=== PATIENT | female | born 1975 | race Caucasian/White ===

== ENCOUNTER 2017-03-31 22:39 | Inpatient (IN) | payer OTHER ==
--- NOTE | ~2017-03-31 | CO ---
Unit #: [id number] #: [id number] Patient: MARGARITO MELENDEZ [id number] [facility] [address], [place] [address] [id number] MR#: [id number] NAME: MARGARITO MELENDEZ ROOM: 229 Age: 42 Sex: F Admission Date: 04/01/2017 : 1975 Attending Physician: Rose Vega M.D. Primary Care Physician: Israel Love M.D. Consultation Date: 04/03/2017 CONSULTATION REPORT DISCUSSION Margarito Melendez is a 42-year-old female, seen in room 221, bed 1 on 04/03/2017 at [facility]. The patient was admitted with suicide attempt by taking overdose, pleasant and cooperative, dressed casually in hospital attire. The patient has a sitter, able to answer questions appropriately. The patient denied any current suicidal ideation, but mood sad, dysphoric, flat, guarded, depressed. REVIEW OF SYSTEMS Complete review of systems is unremarkable. MENTAL STATUS EXAMINATION General appearance, the patient dressed casually. Attention span and concentration, fair. The patient's vital signs; temperature 98.0, pulse 80, respirations 18, blood pressure 129/74, oxygen saturation 100%. Attention span and concentration, fair. Speech, regular rate and slow in volume. Oriented in time, place, and person. Mood and affect, sad and depressed. Thought process, coherent. Thought content; the patient denied any thoughts of harming self or others, but passive SI, denied any hallucination. Recent and remote memory, poor. Language, fair. Insight and judgment, fair to slightly impaired. DIAGNOSES Psychiatric: Major depressive disorder, recurrent, severe, F33.2; amphetamine abuse disorder, moderate, F15.20. Secondary diagnosis: Deferred. ASSESSMENT/PLAN 1. Supportive psychotherapy and psychoeducation provided to the patient. 2. Educated about benefits and side effects of medication and course and prognosis of illness. 3. Advised to continue with current treatment, one-to-one monitoring with a plan to stabilize and transfer the patient to [facility] after the patient is medically stable. Please feel free to call if any questions telephone #[phone]. Dictated by... Nick Quinones M.D. [facility]/sander TD: 04/03/2017 23:52 Unit #: [id number] #: [id number] Patient: MARGARITO MELENDEZ JOB #: [id number] CONSULTATION REPORT Page 1 of 1 X Nick Quinones MD X CONSULTATION REPORT
--- NOTE | ~2017-03-31 | CT71 ---
[facility] A Service of [facility] RADIOLOGY TEXT RESULTS PATIENT: MARGARITO MELENDEZ [facility] [birth year] UNIT #: [id number] AGE: [address]: Rose Vega MD SEX: F ORDER DR: [id number] [facility] [address] [facility]. [place], [place] [address] [id number] I MR#: [id number] Acc #: [id number] NAME: MARGARITO MELENDEZ : 1975 SEX: F STUDY DATE/TIME: 04/01/2017 22:22 UNIT: [facility] ROOM: [facility] STUDY DESCRIPTION: CT Head Wo Contrast Attending Physician: Rose Vega M.D. Ordering Physician: Tristan Reyes M.D. Primary Care Physician: Israel Love M.D. MEDICAL IMAGING REPORT This report is preliminary unless electronic signature is present EXAM CT head. INDICATION Overdose. Unresponsive. Lethargy. TECHNIQUE CT head without contrast. This CT exam was performed with one or more of the following radiation dose reduction techniques: automatic exposure control, adjustment of mA and/or kV according to patient size, and iterative reconstruction. COMPARISON CT head dated 03/31/2017. FINDINGS The exam is degraded due to motion artifact. Axial noncontrast images were obtained from the skull base to the vertex. Ventricular size and configuration are normal. There is no evidence of acute infarct or hemorrhage. There are no extra-axial fluid collections. No mass lesion or mass effect is seen. There are no skull fractures. There is diffuse mucosal thickening throughout the paranasal sinuses, greatest in the left maxillary sinus. IMPRESSION Normal noncontrast head CT. Dictated by... Daryl Turner M.D. THIS IS AN ELECTRONICALLY VERIFIED REPORT Daryl Turner M.D. at 04/02/2017 4:03 AM [facility] A Service of [facility] RADIOLOGY TEXT RESULTS PATIENT: MARGARITO MELENDEZ [facility]: [facility] : 71 UNIT #: [id number] AGE: [address]: Rose Vega MD SEX: F ORDER DR: Sharita TD: 04/02/2017 02:33 JOB #: [id number] MEDICAL IMAGING REPORT Page 1 of 1 COPY
--- NOTE | ~2017-03-31 | EKG ---
PATIENT: MARGARITO MELENDEZ UNIT #: [id number] Ventricular Rate: 124 BPM Atrial Rate: 124 BPM P-R Interval: 138 ms QRS Duration: 86 ms Q-T Interval: 312 ms QTC Calculation(Bezet): 448 ms P [place]: 32 degrees Calculated R [place]: 33 degrees Calculated T [place]: 23 degrees Diagnosis Line: Sinus tachycardia Diagnosis Line: Cannot rule out Anterior infarct (cited on or Diagnosis Line: before 01-DEC-2011) Diagnosis Line: Abnormal ECG Diagnosis Line: When compared with ECG of 01-DEC-2011 13:16, Diagnosis Line: Nonspecific T wave abnormality now evident in Diagnosis Line: Lateral leads Diagnosis Line: Confirmed by RUPAL BENSON MD ([id number]) on Diagnosis Line: 04/02/2017 8:46:27 AM INTERPRETING MD: MARCELINO MACE
--- NOTE | ~2017-03-31 | CR72 ---
[facility] A Service of [facility] RADIOLOGY TEXT RESULTS PATIENT: MARGARITO MELENDEZ LOCATION: [facility] [address]83-65 : [birth year] UNIT #: [id number] AGE: [address]: Rose Vega MD SEX: F ORDER DR: [id number] [facility] [address] [facility] [place], [place] [address] [id number] I MR#: [id number] Acc #: [id number] NAME: AMRGARITO MELENDEZ : 1975 SEX: F STUDY DATE/TIME: 03/31/2017 23:07 UNIT: [facility] ROOM: 71490 STUDY DESCRIPTION: CR Chest Single View Portable Attending Physician: Rose Vega M.D. Ordering Physician: Marcella Giron M.D. Primary Care Physician: Israel Love M.D. MEDICAL IMAGING REPORT This report is preliminary unless electronic signature is present EXAM Single view chest INDICATIONS Respiratory failure. FINDINGS Single portable AP view of the chest compared to 12/01/2011. Endotracheal tube is approximately 2 cm above the adrian. Heart and mediastinal contours are unchanged. No focal airspace opacity. IMPRESSION Endotracheal tube approximately 2 cm above the adrian. Dictated by... Daryl Turner M.D. THIS IS AN ELECTRONICALLY VERIFIED REPORT Daryl Turner M.D. at 04/01/2017 3:25 AM HEATHER/vivek TD: 04/01/2017 03:13 JOB #: [id number] MEDICAL IMAGING REPORT Page 1 of 1 COPY
--- NOTE | ~2017-03-31 | DS ---
Unit #: [id number] #: [id number] Patient: MARGARITO MELENDEZ [id number] [address] [place], [place] [address] [id number] I MR#: [id number] NAME: MARGARITO MELENDEZ ROOM: 229 Age: 42 Sex: F Admission Date: 04/01/2017 : 1975 Discharge Date: 04/03/2017 Attending Physician: Rose Vega M.D. Primary Care Physician: Israel Love M.D. DISCHARGE SUMMARY DISCHARGE DIAGNOSES 1. Status post acute hypoxemic respiratory failure. 2. Aspiration pneumonia. 3. Drug overdose with suicidal ideation. 4. Polysubstance abuse. 5. Depression. 6. History of gastroesophageal reflux disease. DISPOSITION Going to [facility] to the care of Psychiatry, Dr. Quinones. CONSULTS DURING THIS HOSPITAL STAY 1. Dr. Ellis, Pulmonary. 2. Dr. Quinones, Psychiatry. LABS, DIAGNOSTICS, AND PROCEDURES DURING THIS HOSPITAL STAY 1. She was intubated initially and then was extubated later the next day. 2. Chest x-ray initially showed no focal airspace opacity. 3. CT of the head was without any acute findings. Motion-degraded study. Questionable area of decreased attenuation in the left occipital lobe likely motion-degraded study and artifact. 4. Repeat CT of the head the next day was a normal noncontrast CT. 5. Chest x-ray without any acute findings. Mild bibasilar airspace opacities most likely atelectasis. 6. Blood culture negative. Urine culture showed E. coli. HISTORY OF PRESENT HOSPITAL STAY Please refer to History and Physical done by me for initial presentation on this female. ACTIVE PROBLEMS DIAGNOSED Acute hypoxemic respiratory failure secondary to drug overdose with suicidal ideation. Patient was initially intubated and admitted to the ICU. She was managed on mechanical ventilation and treated with bronchodilators, steroids, and antibiotics. She was successful extubated. Currently, no signs of any respiratory distress. Questionable aspiration pneumonia. She was treated with IV antibiotics. At the discharge date, patient was put on Augmentin. However, secondary to a E. coli UTI which is resistant to ampicillin, will change patient to Levaquin and will discharge on Levaquin for seven days. Suicidal ideation with history of depression, status post evaluation per Dr. Quinones from Psychiatry. Getting discharged to [facility]. Unit #: [id number] #: [id number] Patient: MARGARITO MELENDEZ Gastroesophageal reflux disease. Continue PPI. Polysubstance abuse. Patient was counseled on the importance of quitting drug habits. Dictated by... Lucien Akins/satish TD: 04/03/2017 20:32 JOB #: [id number] DISCHARGE SUMMARY Page 1 of 1 X Tristan Reyes MD X DISCHARGE SUMMARY
--- NOTE | ~2017-03-31 | CT71 ---
[facility] A Service of [facility] RADIOLOGY TEXT RESULTS PATIENT: MARGARITO MELENDEZ [facility] : 71 UNIT #: [id number] AGE: [address]: Rose Vega MD SEX: F ORDER DR: [id number] [place] [id number] [facility]. [place], [place] [address] [id number] I MR#: [id number] Acc #: [id number] NAME: MARGARITO MELENDEZ : 1975 SEX: F STUDY DATE/TIME: 03/31/2017 23:36 UNIT: [facility]3 ROOM: [facility] STUDY DESCRIPTION: CT Head Wo Contrast Attending Physician: Rose Vega M.D. Ordering Physician: Marcella Giron M.D. Primary Care Physician: Israel Love M.D. MEDICAL IMAGING REPORT This report is preliminary unless electronic signature is present EXAM CT head INDICATION Overdose. Unresponsive. Found down. TECHNIQUE CT head without contrast. This CT exam was performed with one or more of the following radiation dose reduction techniques: automatic exposure control, adjustment of mA and/or kV according to patient size, and iterative reconstruction. COMPARISON None available. FINDINGS The exam is degraded by motion. Bar-white matter differentiation is within normal limits. There is a questionable area of decreased attenuation in the left occipital lobe which could indicate a small acute infarct, however, there is motion in this area and it may be artifact. The ventricles are small in caliber which may be a normal variant, however a followup study should be performed. There is no acute osseous abnormalities. Mild mucosal thickening is noted in the paranasal sinuses. IMPRESSION 1. Unfortunately the exam is degraded by motion. 2. There is a questionable area of decreased attenuation in the left occipital lobe which could represent an acute infarct, however given the motion in this region, it could easily be artifact. Followup CT would be recommended. 3. Small size of the ventricles may be a normal variant in this patient, [facility] A Service [facility] RADIOLOGY TEXT RESULTS PATIENT: MARGARITO MELENDEZ [facility] 71 UNIT #: [id number] AGE: [address]: Rose Vega MD SEX: F ORDER DR: however, I would recommend followup study to further evaluate. Consider an 8-hour followup window. Dictated by... Daryl Turner M.D. THIS IS AN ELECTRONICALLY VERIFIED REPORT Daryl Turner M.D. at 04/01/2017 9:06 PM HEATHER/antony TD: 04/01/2017 03:44 JOB #: [id number] MEDICAL IMAGING REPORT Page 1 of 1 COPY
--- NOTE | ~2017-03-31 | CO ---
Unit #: [id number] #: [id number] Patient: MARGARITO MELENDEZ [id number] [address] [address] [id number] MR#: [id number] NAME: MARGARITO MELENDEZ ROOM: 229 Age: 42 Sex: F Admission Date: 04/01/2017 : 1975 Attending Physician: Rose Vega M.D. Primary Care Physician: Israel Love M.D. Consultation Date: 04/02/2017 CONSULTATION REPORT REASON FOR CONSULTATION Polysubstance overdose, polydrug overdose. HISTORY OF PRESENT ILLNESS Ms. Margarito Melendez is a 42-year-old white female, seen in CCU-3, bed 17 on 04/02/2017. The patient dressed in hospital attire, lying comfortably in bed. The patient was somewhat sleepy, but able to answer question. The patient admitted taking overdose on her medication. The patient reported was feeling sad, depressed, suicidal, still unable to contract for safety. The patient currently has a sitter. The patient was admitted with acute hypoxemic respiratory failure after drug overdose. The patient was able to give limited history. The patient's toxicology screen was positive for amphetamine and marijuana also. The patient was calm and cooperative, but somewhat sleepy. The patient's vital signs; temperature 99.5, pulse 83, blood pressure 146/85, oxygen saturation 97%. PAST PSYCHIATRIC HISTORY Remarkable for history of depression. Details about treatment is unknown at this time. MEDICATION HISTORY Unavailable. FAMILY HISTORY AND SOCIAL HISTORY The patient's family history is unknown, but reported that she has a good support. The patient denied any history of abuse, but history of substance abuse as per urine drug screen. The patient denied any. REVIEW OF SYSTEMS A complete review of systems is unremarkable except the patient is somewhat sleepy, sad, and depressed. MENTAL STATUS EXAMINATION Vital signs; please see above. General appearance; the patient dressed casually in hospital attire. Attention span and concentration, poor. Speech, slow. Orientation in self. Mood and affect, flat. Thought process, concrete. Thought content; the patient reported suicide attempt, suicidal ideation, guarded, and paranoid, but denied any hallucination. Recent and remote memory, poor. Language, fair. Fund of knowledge, impaired. Insight and judgment, impaired. DIAGNOSES Psychiatric: Major depressive disorder, recurrent, severe, F33.2; amphetamine use disorder, moderate, F15.20; cannabis abuse, moderate, Unit #: [id number] #: [id number] Patient: MARGARITO MELENDEZ F12.20. Secondary diagnosis: Deferred. Medical diagnosis: Please refer to H and P. Stressors: Psychosocial stressor. ASSESSMENT AND PLAN 1. Supportive psychotherapy and psychoeducation provided to the patient. 2. Educated about benefits and side effects of medication and course and prognosis of illness. 3. Recommending at this time no medication, but continue with 72-hour hold, one-on-one monitoring with sitter, and advised the patient to be transferred to [facility] once the patient is medically stable. Please feel free to call if any questions, telephone #[phone]. Dictated by... Nick Quinones M.D. CHRISTIE/sander TD: 04/02/2017 22:24 JOB #: [id number] CONSULTATION REPORT Page 1 of 1 X Nick Quinones MD X CONSULTATION REPORT
--- NOTE | ~2017-03-31 | A ---
[facility] Nutrition Therapy DATE: 04/01/17 Patient: MARGARITO MELENDEZ Physician: JOSHUA Address: [address] [place] [address] Room/Bed: [address], Zip: [place] [address] Admit Date: 04/01/17 Date of : [birth year] Height: 5 6 Weight: 183 83 NUTRITIONAL ASSESSMENT: REASON: NPO in ICU, intubated Admitting Dx: 42 y/o female admitted with multi-drug overdose PMH (obtained from physical chart; no new H&P available): HTN, GERD, cecelia, 1/2 ppd smoker, ?psych history Anthropometrics: Ht: 66", Wt: 83 kg, BMI: 29 (overweight) 03/31 Labs: K+ 2.8, glucose 165, POC 171, Na/Mg WNL Meds: D5, Zofran prn, PPI, Propofol @ 19.4 ml/hr (providing 512 lipid kcals) I/O & Bowel function: UTO; no shift assessment available yet Skin Integrity: UTO; no shift assessment available yet Estimated Nutrition Needs: [id number] kcals per day (20-25 kcals/kg) 75-91 g protein per day (0.9-1.1 g/kg) Fluids consistent with kcal needs or per MD Assessment: Chart reviewed, events noted. See admitting dx and PMH as stated above. Most recent H&P is from 2004, PMH obtained from physical chart. No admission or shift assessment available yet to obtain GI/skin/edema information. Patient was discussed during morning rounds, she is currently intubated and sedated with Propofol. RN says Propofol rate will likely be decreased today and stay around 14 ml/hr- will base EN recs accordingly. Patient is not appropriate for RD interview at this time, no nutritional query/malnutrition risk screen performed as of yet. Will follow hospital course. Dx: Inadequate energy intake r/t intubation AEB NPO, need for EN. Intervention: Initiate enteral nutrition, replace lytes prn Monitoring, Evaluation and Goals: 1. EN consistent with estimated nutrition needs. 2. Skin WNL. 3. Promote regular BM's. 4. Glucose, lytes WNL. [facility] Nutrition Therapy DATE: 04/01/17 Patient: MARGARITO MELENDEZ Physician: JOSHUA Address: [address] [place] [address] Room/Bed: [address], Zip: [place] [address] Admit Date: 04/01/17 Date of : [birth year] Height: 5 6 Weight: 183 83 Monitor: Per protocol, criteria to determine if above goals met Recommendations: 1. Replace lytes prn. 2. Once medically feasible initiate enteral nutrition with Jevity 1.5 @ 20 ml/hr and increase by 10 ml q 6 hours until goal rate of 40 ml/hr is reached. Please order 30 ml Prostat once daily and give via tube. Note this is the patient's goal rate WITH Propofol, assuming it will run at about 14 ml/hr on average (would provide 370 lipid kcals at this rate). Currently Propofol is running at 19.4 ml/hr, providing 512 lipid kcals. Once at goal rate add free water flushes of 250 ml QID or per MD. 3. If Propofol is D/C increase enteral feeds to new goal rate of 50 ml/hr and discontinue Prostat. This will provide 1800 kcals, 77 g protein and 912 ml water. Flush with 225 ml free water QID or per MD. 4. If extubated advance to regular diet as tolerated. Suggest AIR QUALITY MANAGER eval if intubated for > [address] will follow hospital course Moderate nutrition risk Respectfully, Analy Judge, ANDREA, LD [employer] [facility] cc: client file
--- NOTE | ~2017-03-31 | CR72 ---
[facility] A Service of [facility] RADIOLOGY TEXT RESULTS PATIENT: MARGARITO MELENDEZ LOCATION: [facility] 229-01 : [birth year] UNIT #: [id number] AGE: [address]: Rose Vega MD SEX: F ORDER DR: [id number] [facility] [address] [place], [place] [address] [id number] I MR#: [id number] Acc #: [id number] NAME: MARGARITO MELENDEZ : 1975 SEX: F STUDY DATE/TIME: 04/02/2017 4:34 UNIT: [facility] ROOM: [facility] STUDY DESCRIPTION: CR Chest Single View Portable Attending Physician: Rose Vega M.D. Ordering Physician: Moises Ellis M.D. Primary Care Physician: Israel Love M.D. MEDICAL IMAGING REPORT This report is preliminary unless electronic signature is present EXAM Single view chest INDICATIONS Respiratory failure. FINDINGS Single portable AP view of the chest compared 03/31/2017. Heart and mediastinal contours are unchanged. Endotracheal tube has been removed. There is mild bibasilar airspace opacities most consistent with atelectasis. No pneumothorax. IMPRESSION Interval extubation. Dictated by... Daryl Turner M.D. THIS IS AN ELECTRONICALLY VERIFIED REPORT Daryl Turner M.D. at 04/03/2017 12:19 AM HEATHER/juliet TD: 04/02/2017 06:22 JOB #: [id number] MEDICAL IMAGING REPORT Page 1 of 1 COPY
--- NOTE | ~2017-03-31 | CO ---
Unit #: [id number] #: [id number] Patient: MARGARITO MELENDEZ [id number] [address] [address] [id number] MR#: [id number] NAME: MARGARITO MELENDEZ ROOM: [facility] Age: 42 Sex: F Admission Date: 04/01/2017 : 1975 Attending Physician: Rose Vega M.D. Primary Care Physician: Israel Love M.D. CONSULTATION REPORT REASON FOR CONSULTATION Critical care management. CHIEF COMPLAINT Altered mental status and drug overdose. HISTORY OF PRESENT ILLNESS Patient brought to the emergency room with the complaint of altered mental status. Last seen normal was a few hours ago and found an empty pill bottles next to her. The patient is currently intubated, sedated. PAST MEDICAL HISTORY 1. Gastroesophageal reflux disease. 2. Questionable depression. PAST SURGICAL HISTORY 1. Cholecystectomy. 2. Right foot surgery. SOCIAL HISTORY Half pack smoker. Positive for drug abuse. PHYSICAL EXAMINATION VITAL SIGNS: Temperature 98, pulse rate 70, respirations 12, blood pressure 130/70. NEUROLOGIC: "Awake, alert and oriented. No neuro deficits." HEENT: PERRLA. EOMI. NECK: Supple. No JVD. CHEST: Bilateral air entry. Bilateral mild rhonchi. GI: Nontender. Soft. Bowel sounds positive. EXTREMITIES: No edema. SKIN: No rashes, no ulcer. LYMPHATIC: No lymphadenopathy. DIAGNOSTIC STUDIES LABS: Blood gas - pH of 7.32, pCO2 42.3, pO2 136. BUN 10, creatinine 0.6, potassium 2.8. White count is 6, hemoglobin 12, hematocrit 36. IMAGING: Chest x-ray showed endotracheal tube 2 cm above the adrian No focal airspace opacity. ASSESSMENT 1. Drug overdose. 2. Altered mental status. Unit #: [id number] #: [id number] Patient: MARGARITO MELENDEZ 3. Likely COPD. PLAN Plan is to continue patient on IV antibiotics, ventilator support, bronchodilator, sedation protocol. GI and DVT prophylaxis. IV fluid. Adjust the vent settings. Patient will be closely monitored. Please see orders for details plan. Will try an extubation trial once patient responsive. Thank you very much for this consultation. We will continue to follow the patient along with you very closely. NOTE: Critical care time - 65 minutes. Dictated by... Lucien Henriquez TD: 04/01/2017 10:20 JOB #: [id number] CONSULTATION REPORT Page 1 of 1 X Moises Ellis MD CONSULTATION REPORT
--- NOTE | ~2017-03-31 | HP ---
Unit #: [id number] #: [id number] Patient: MARGARITO MELENDEZ [id number] [address] [place], [place] [address] [id number] MR#: [id number] NAME: MARGARITO MELENDEZ ROOM: [facility] Age: 42 Sex: F Admission Date: 04/01/2017 : 1975 Attending Physician: Rose Vega M.D. Primary Care Physician: Israel Love M.D. HISTORY AND PHYSICAL ADMISSION DIAGNOSES 1. Acute hypoxemic respiratory failure. 2. Drug overdose. 3. History of depression. 4. History of gastroesophageal reflux disease. HISTORY OF PRESENT ILLNESS Ms. Melendez is a 42-year-old female, patient of Dr. Love, who was referred to the emergency room secondary to altered mental status and unresponsiveness. The family found her with empty bottles of medicine. She was found in acute hypoxemic respiratory failure. She was intubated and admitted to the ICU. She was evaluated by Pulmonary, Dr. Ellis, and successfully extubated. Currently, she is very lethargic. She is arousable but does not answer many questions. Therefore, my history is very limited, and I am unable to obtain any review of systems. Initial evaluation again found her with a toxicology screen positive for amphetamines, marijuana, and TCA. Her cardiac enzymes were negative, and her urinalysis was positive for nitrites. A CT of the head initially was read as questionable decreased attenuation in the left occipital lobe. However, due to the study being degraded by motion, it was thought that it could have been just an artifact. The rest of the initial evaluation on the chemistry was significant for blood glucose of 165. PAST MEDICAL HISTORY 1. Depression. 2. Gastroesophageal reflux disease. PAST SURGICAL HISTORY 1. Foot surgery on the right. 2. Cholecystectomy. CURRENT MEDICATIONS 1. IV Protonix. 2. Haldol p.r.n. 3. Lovenox 40 subcutaneous daily. 4. Tylenol p.r.n. 5. Zofran p.r.n. 6. IV fluids. ALLERGIES No known drug allergies. SOCIAL HISTORY Unit #: [id number] #: [id number] Patient: MARGARITO MELENDEZ From the previous chart significant for polysubstance abuse and tobacco use. FAMILY HISTORY Unknown. PHYSICAL EXAMINATION GENERAL: Patient is a 77-year-old female in no acute distress. VITAL SIGNS: Blood pressure 138/81, heart rate 82, respirations 16, and temperature 98.2. HEENT: Head is atraumatic. Pupils equal, round, and reactive to light and accommodation. Extraocular muscles intact. Oropharynx clear. NECK: Supple. No mass, no JVD, and no bruits. CHEST: Diminished bilaterally. CARDIOVASCULAR: S1 and S2. No murmurs. ABDOMEN: Soft, nontender, and nondistended. LOWER EXTREMITIES: Without any cyanosis, clubbing, or edema. NEUROLOGIC: Grossly intact with no focal deficits. DIAGNOSTIC STUDIES LABORATORY: As above in History of Present Illness. IMAGING: As above in History of Present Illness. ASSESSMENT AND PLAN 1. Acute hypoxemic respiratory failure, resolving, status post extubation. Monitor closely in the ICU. 2. Questionable drug overdose with questionable suicidal ideation with history of depression. Will put on 74-hour hold until Psychiatry clears. 3. History of gastroesophageal reflux disease. Continue proton pump inhibitor. 4. Abnormal CT likely motion degraded study, however, will repeat the CT of the head. Consider Neurology evaluation. 5. Continue gastrointestinal and deep venous thrombosis prophylaxis. 1. Dictated by Tristan Reyes M.D. OC/satish TD: 04/01/2017 20:37 JOB #: [id number] HISTORY AND PHYSICAL Page 1 of 1 X Tristan Reyes MD X HISTORY AND PHYSICAL
[~2017-03-31 22:39] MED LIST: CELEXA PO; EXFORGE 10-3201 TAB PO; FAMOTIDINE PO; LORTAB 5/500 TA1 TA1 PO; PERCOCET 7.5-31 EACH PO; PROTONIX20 MG PO; ZOCOR10 MG PO
[2017-03-31 23:07] LABS: ARTERIAL BLD GAS O2 SATURATION 90.5 % (90.0-100.0); ARTERIAL BLOOD GAS HCO3 23.6 mmol/L; ARTERIAL BLOOD GAS MET HB 0.5 %sat (0.0-2.0); ARTERIAL BLOOD GAS pH 7.282 (7.350-7.450)
[2017-03-31 23:08] LABS: ARTERIAL BLOOD GAS ALLEN TEST NORMAL; ARTERIAL BLOOD GAS ART SITE LEFT RADIAL; ARTERIAL BLOOD GAS DELIVERY VENT; ARTERIAL BLOOD GAS PCO2 50.1 mmHg (35.0-45.0); ARTERIAL BLOOD GAS VENT MODE AC; ARTERIAL DRAW? YES
[2017-03-31 23:21] LABS: URINE SOURCE CATH
[2017-03-31 23:24] LABS: BASOPHIL% 0.3 % (0-2.5); EOSINOPHIL# 0.1 X10e3 (0-0.7); EOSINOPHIL% 1.8 % (0.0-7.0); HEMATOCRIT 36.9 % (35.0-45.0); HEMOGLOBIN 12.3 gm/dL (12.0-16.0); LYMPHOCYTE# 2.5 X10e3 (1.0-3.5); LYMPHOCYTE% 35.9 % (17.0-45.0); MEAN CELL VOLUME 94.9 FL (83-96); MEAN CORPUSCULAR HEMOGLOBIN 31.5 PG (28-34); MEAN CORPUSCULAR HGB CONC 33.2 g/dL (30-36); MEAN PLATELET VOLUME 8.2 FL (6.5-11.5); MONOCYTE# 0.5 X10e3 (0-1.0); MONOCYTE% 7.5 % (3.0-12.0); NEUTROPHIL# 3.8 X10e3 (1.5-7.1); NEUTROPHIL% 54.5 % (40-75); PLATELET COUNT 226 X10e3 (140-420); RED BLOOD COUNT 3.89 X10e (3.90-5.30); RED CELL DISTRIBUTION WIDTH 12.9 % (11.0-15.5); WHITE BLOOD COUNT 6.9 X10e3 (4.0-10.5)
[2017-03-31 23:26] LABS: DIFF IND NO
[2017-03-31 23:28] LABS: POC - CKMB <1.0 ng/mL (0.0-7.9); POC - TROPONIN <0.05 ng/mL (<=0.05)
[2017-03-31 23:29] LABS: URINE APPEARANCE CLEAR; URINE BILIRUBIN NEG (NEG); URINE BLOOD NEG (NEG); URINE COLOR YELLOW; URINE GLUCOSE NEG (NEG); URINE KETONE NEG (NEG); URINE LEUKOCYTE ESTERASE NEG (NEG); URINE NITRATE POS (NEG); URINE PH 5.5 (5-8); URINE PROTEIN NEG (NEG); URINE SPECIFIC GRAVITY 1.014 (1.003-1.035); URINE UROBILINOGEN 0.2 MG/DL (NEG)
[2017-03-31 23:34] LABS: CULTURE INDICATED? YES; URINE BACTERIA AUWI 4+ (NEGATIVE); URINE SQUAMOUS EPITHELIAL CELL OCC /[HPF]; UWBCS1 AUWI 0-2 (0-5)
[2017-03-31 23:38] LABS: AMPHETAMINE POS (NEG); BARBITURATES NEG (NEG); BENZODIAZEPINES NEG (NEG); COCAINE NEG (NEG); MARIJUANA POS (NEG); OPIATES NEG (NEG); TRICYCLIC ANTIDEPRESSANTS POS (NEG); U METHADONE NEG (NEG)
[2017-03-31 23:53] LABS: ALBUMIN SERUM 3.4 g/dL (3.5-5.0); ALKALINE PHOSPHATASE 91 U/L (32-92); ALT (SGPT) 21 U/L (10-40); AST (SGOT) 18 U/L (10-42); BILIRUBIN, DIRECT 0.1 mg/dL (0.0-0.2); BILIRUBIN,INDIRECT 0.3 mg/dL (0.0-0.9); BILIRUBIN,TOTAL 0.4 mg/dL (0.2-2.0); BLOOD UREA NITROGEN 10 mg/dL (9-23); BUN/CREATININE RATIO 16.66; CALCIUM SERUM 8.9 mg/dL (8.4-10.2); CARBON DIOXIDE 24 mmol/L (22-31); CHLORIDE 107 mmol/L (100-111); CPK (CREATINE PHOSPHOKINASE) 55 IU/L (26-140); CREATININE SERUM 0.6 mg/dL (0.6-1.4); GLOM FILT RATE Estimated 110.9 mL/min (>60); GLUCOSE FASTING 165 mg/dL (70-110); LIPASE 19 U/L (22-51); MAGNESIUM 1.6 mg/dL (1.6-3.0); PROTEIN TOTAL SERUM 6.7 g/dL (6.0-8.3); SALICYLATE <4.0 mg/dL; SODIUM 137 mmol/L (135-145)
[2017-03-31 23:54] LABS: ACETAMINOPHEN <10 ug/mL; ALCOHOL BLOOD <5 mg/dL (0); POTASSIUM 2.8 mmol/L (3.5-5.1)
[2017-04-01 00:26] LABS: ARTERIAL BLD GAS O2 SATURATION 97.1 % (90.0-100.0); ARTERIAL BLOOD GAS CARBOXY HB 1.5 %sat (0.0-9.0); ARTERIAL BLOOD GAS HCO3 24.7 mmol/L; ARTERIAL BLOOD GAS MET HB 1.1 %sat (0.0-2.0); ARTERIAL BLOOD GAS pH 7.205 (7.350-7.450)
[2017-04-01 00:29] LABS: ARTERIAL BLOOD GAS ALLEN TEST NORMAL; ARTERIAL BLOOD GAS ART SITE LEFT RADIAL; ARTERIAL BLOOD GAS DELIVERY VENT; ARTERIAL BLOOD GAS PCO2 62.4 mmHg (35.0-45.0); ARTERIAL BLOOD GAS VENT MODE AC; ARTERIAL DRAW? YES
[2017-04-01 03:23] LABS: ARTERIAL BLD GAS O2 SATURATION 97.6 % (90.0-100.0); ARTERIAL BLOOD GAS CARBOXY HB 0.6 %sat (0.0-9.0); ARTERIAL BLOOD GAS HCO3 21.9 mmol/L; ARTERIAL BLOOD GAS MET HB 0.9 %sat (0.0-2.0); ARTERIAL BLOOD GAS PCO2 42.3 mmHg (35.0-45.0); ARTERIAL BLOOD GAS pH 7.323 (7.350-7.450)
[2017-04-01 03:24] LABS: ARTERIAL BLOOD GAS ALLEN TEST NORMAL; ARTERIAL BLOOD GAS ART SITE LEFT RADIAL; ARTERIAL BLOOD GAS DELIVERY VENT; ARTERIAL BLOOD GAS VENT MODE AC; ARTERIAL DRAW? YES
[2017-04-01 12:10] LABS: ARTERIAL BLD GAS O2 SATURATION 96.5 % (90.0-100.0); ARTERIAL BLOOD GAS CARBOXY HB 0.4 %sat (0.0-9.0); ARTERIAL BLOOD GAS HCO3 23.8 mmol/L; ARTERIAL BLOOD GAS pH 7.362 (7.350-7.450)
[2017-04-01 12:11] LABS: ARTERIAL BLOOD GAS ART SITE RIGHT BRACHIAL; ARTERIAL BLOOD GAS DELIVERY VENT; ARTERIAL BLOOD GAS VENT MODE CPAP; ARTERIAL DRAW? YES
[2017-04-01 13:55] LABS: MAGNESIUM 1.6 mg/dL (1.6-3.0); POTASSIUM 3.5 mmol/L (3.5-5.1)
[2017-04-02 05:44] LABS: BASOPHIL% 0.2 % (0-2.5); EOSINOPHIL# 0.1 X10e3 (0-0.7); EOSINOPHIL% 0.6 % (0.0-7.0); HEMATOCRIT 35.2 % (35.0-45.0); HEMOGLOBIN 11.8 gm/dL (12.0-16.0); LYMPHOCYTE% 10.3 % (17.0-45.0); MEAN CELL VOLUME 93.8 FL (83-96); MEAN CORPUSCULAR HEMOGLOBIN 31.6 PG (28-34); MEAN CORPUSCULAR HGB CONC 33.6 g/dL (30-36); MEAN PLATELET VOLUME 8.5 FL (6.5-11.5); MONOCYTE# 0.8 X10e3 (0-1.0); NEUTROPHIL# 16.5 X10e3 (1.5-7.1); NEUTROPHIL% 84.9 % (40-75); PLATELET COUNT 214 X10e3 (140-420); RED BLOOD COUNT 3.75 X10e (3.90-5.30); RED CELL DISTRIBUTION WIDTH 13.1 % (11.0-15.5)
[2017-04-02 05:46] LABS: DIFF IND YES; WHITE BLOOD COUNT 19.4 X10e3 (4.0-10.5)
[2017-04-02 06:23] LABS: PLATELET ESTIMATE NORMAL (NORMAL); RBC NORMAL YES; VACUOLIZATION SL
[2017-04-02 06:32] LABS: ALBUMIN SERUM 2.6 g/dL (3.5-5.0); BILIRUBIN,TOTAL 0.4 mg/dL (0.2-2.0); CALCIUM SERUM 8.3 mg/dL (8.4-10.2); CREATININE SERUM 0.5 mg/dL (0.6-1.4); GLOM FILT RATE Estimated 117.7 mL/min (>60); POTASSIUM 3.8 mmol/L (3.5-5.1); PROTEIN TOTAL SERUM 5.3 g/dL (6.0-8.3)
[2017-04-03 06:20] LABS: HEMATOCRIT 33.9 % (35.0-45.0); HEMOGLOBIN 11.4 gm/dL (12.0-16.0); MEAN CELL VOLUME 93.6 FL (83-96); MEAN CORPUSCULAR HEMOGLOBIN 31.5 PG (28-34); MEAN CORPUSCULAR HGB CONC 33.7 g/dL (30-36); MEAN PLATELET VOLUME 8.6 FL (6.5-11.5); RED BLOOD COUNT 3.62 X10e (3.90-5.30); RED CELL DISTRIBUTION WIDTH 12.9 % (11.0-15.5)
[2017-04-03 06:35] LABS: MAGNESIUM 1.7 mg/dL (1.6-3.0); POTASSIUM 3.4 mmol/L (3.5-5.1)
[2017-04-03 07:26] LABS: PROCALCITONIN 0.69 NG/ML
[2017-04-03 15:38] LABS: POTASSIUM 3.8 mmol/L (3.5-5.1)
== END 2017-04-04 00:55 | DRG 917 ==
LOC: CED 22:39 → CICCU3 04-01 01:20 → CEDOF 04-01 01:20 → C2A 04-01 01:20 → CICCU3 04-01 01:59 → CED 04-01 01:59 → CEDOF 04-01 01:59 → CICCU3 04-01 07:53 → CEDOF 04-01 07:53 → C2A 04-02 12:34
PROVIDERS: Emergency Medicine; Hospitalist; Internal Medicine; Physician Assistant Medical
PROC: 0BH17EZ Insertion of Endotracheal Airway into Trachea, Via Natural or Artificial Opening (ICD-10-PCS; principal; 2017-04-01)
PROC: 5A1935Z Respiratory Ventilation, Less than 24 Consecutive Hours (ICD-10-PCS; 2017-04-01)
DX: T43.592A Poisoning by other antipsychotics and neuroleptics, intentional self-harm, initial encounter (principal); J69.0 Pneumonitis due to inhalation of food and vomit; J96.01 Acute respiratory failure with hypoxia; F33.2 Major depressive disorder, recurrent severe without psychotic features; F15.20 Other stimulant dependence, uncomplicated; N39.0 Urinary tract infection, site not specified; T42.8X2A Poisoning by antiparkinsonism drugs and other central muscle-tone depressants, intentional self-harm, initial encounter; F17.210 Nicotine dependence, cigarettes, uncomplicated; K21.9 Gastro-esophageal reflux disease without esophagitis; F12.20 Cannabis dependence, uncomplicated; B96.20 Unspecified Escherichia coli [E. coli] as the cause of diseases classified elsewhere
CPT/HCPCS: 31500; 36415; 36600; 51702; 70450; 71010; 80048; 80053; 80076; 80307; 81003; 82308; 82550; 82553; 82803; 82947; 83605; 83690; 83735; 84132; 84484; 84703; 85025; 85027; 87040; 87086; 87088; 87186; 93005; 94003; 94760; 94761; 96361; 96374; 99291; C9113; G0480; J0696; J1630; J1650; J2405; J3010; J3475

== ENCOUNTER 2017-04-03 19:37 | Inpatient (IN) | payer OTHER ==
--- NOTE | ~2017-04-03 | PA ---
Unit #: [id number] #: [id number] Patient: MARGARITO LU [id number] [place] [address] [id number] I MR#: [id number] NAME: MARGARITO LU ROOM: 73 Age: 42 Sex: F Admission Date: 04/04/2017 : 1975 Date of Assessment: Attending Physician: Nick Quinones M.D. Admitting Physician: Nick Quinones M.D. Primary Care Physician: Israel Love M.D. PSYCHIATRIC ASSESSMENT INFORMANTS The patient reliability, fair; chart reliability, good. CHIEF COMPLAINT Depression and suicide attempt. HISTORY OF PRESENT ILLNESS Ms. Margarito Lu is a 42-year-old female, seen on , admitted after she was transferred from [facility]. The patient was initially admitted at [facility] in ICU on 04/01/2017. The patient was admitted after suicide attempt with intentional overdose of Seroquel. The patient currently denied any suicidal ideation, but sad, depressed, flat affect. The patient was able to contract for safety. The patient denied any psychotic symptom. The patient was followed by the underwriter while she was in the hospital at the [facility]. The patient was cooperative. Reported history of amphetamine abuse and marijuana abuse. The patient needed inpatient admission at this time for psychiatric stabilization. PAST PSYCHIATRIC HISTORY Remarkable for history of outpatient treatment. No history of any previous suicide attempt or any inpatient treatment. MEDICAL HISTORY Remarkable for GERD, history of recent suicide attempt by taking overdose. Musculoskeletal; muscle strength and tone, no atrophy or abnormal movement. Gait normal. MEDICATIONS HISTORY None. ALLERGIES No known drug allergies. SUBSTANCE ABUSE HISTORY The patient denied, but urine drug screen was positive for amphetamine and marijuana. REVIEW OF SYSTEMS HEENT: Eyes, clear. Ears, nose, mouth, and throat; clear. CARDIOVASCULAR: Unremarkable. RESPIRATORY: Unremarkable. GI: Unremarkable. Unit #: [id number] #: [id number] Patient: MARGARITO LU : Unremarkable. SKIN: Unremarkable. LYMPH NODE: Unremarkable. NEUROLOGIC: Unremarkable. ENDOCRINE: Unremarkable. HEMATOLOGIC: Unremarkable. ALLERGIC/IMMUNOLOGIC: Unremarkable. MUSCULOSKELETAL: Muscle strength and tone, no atrophy or abnormal movement. Gait normal. MENTAL STATUS EXAMINATION CONSTITUTIONAL: Measurement of vital signs; temperature 98.6, pulse 82, respirations 18, blood pressure is 119/97, height 5 feet 4 inches, weight 183 pounds. GENERAL APPEARANCE: The patient dressed casually. The patient did not show any facial deformity. MUSCULOSKELETAL: Please see above. PSYCHIATRIC EXAMINATION Description of speech; regular rate, normal volume, normal articulation, coherent. Description of thought process, goal directed. Description of association, intact. Description of abnormal psychotic thinking; the patient denied any hallucination, delusions. Reported took overdose, but denied any current suicidal or homicidal ideation. Denied any psychotic symptom. Description of the patient's judgment, concerning everyday activity, poor. Social situation, poor. Concerning psychiatric condition, poor. Complete mental status examination; oriented in time, place, and person. Recent and remote memory, fair. Attention span and concentration, fair. Language, able to name object and repeat phrases. Fund of knowledge, aware of current event and past history. Vocabulary intact. Mood and affect, sad and dysphoric. Insight and judgment, fair to poor. ASSETS AND LIABILITIES The patient is articulate and able to take care of her ADL. Liability, history of substance abuse and depression. ADMITTING DIAGNOSES Psychiatric: Major depressive disorder, recurrent, moderate to severe, F33.2; amphetamine abuse, moderate, F15.20; cannabis abuse, moderate, F12.20. Secondary diagnosis: Deferred. Medical diagnosis: None. Stressors: Psychosocial stressors. PSYCHIATRIC PLAN AND TREATMENT GOAL AND DISCHARGE PLAN 1. Advised to admit the patient on the inpatient unit. Provide safe, supportive, and structured environment. 2. Ordered labs; CBC, CMP. 3. Precaution for self-harm. 4. The patient to attend all the programing on the inpatient unit with group therapy, individual therapy, family session. Advised Lexapro for depression. The patient to attend all the programing. If needed, consider further adjustment of medication. Unit #: [id number] #: [id number] Patient: MARGARITO LU 5. Treatment goal to attain euthymic mood, gain insight into her problem, and learn coping skills. 6. Discharge plan, plan to stabilize the patient and consider followup in outpatient program. ESTIMATED LENGTH OF STAY 3 to 5 days. Dictated by... Nick Quinones M.D. CHRISTIE/sander TD: 04/05/2017 04:35 JOB #: [id number] PSYCHIATRIC ASSESSMENT Page 1 of 1 X Nick Quinones MD PSYCHIATRIC ASSESSMENT
--- NOTE | ~2017-04-03 | DS ---
Unit #: [id number] #: [id number] Patient: MARGARITO MELENDEZ [id number] [facility] [address] [place] [address] [id number] I MR#: [id number] NAME: MARGARITO MELENDEZ ROOM: [facility] Age: 42 Sex: F Admission Date: 04/04/2017 : 1975 Discharge Date: 04/04/2017 Attending Physician: Nick Quinones M.D. Primary Care Physician: Israel Love M.D. DISCHARGE SUMMARY REASON FOR ADMISSION Depression. DIAGNOSTIC STUDIES LABORATORY RESULTS: None. HOSPITAL COURSE The patient was admitted to inpatient unit. The patient denied any suicidal ideation upon admission to [facility], was able to maintain safe behavior. The patient requested for discharge. The patient denied any suicidal or homicidal ideation. Denied any psychotic symptom at this time. The patient was unholdable at this time as her 72-hour hold . The patient was subsequently discharged against medical advice as the patient will be benefitted with the inpatient treatment, but currently denied any suicidal or homicidal ideation. Denied any psychotic symptom, therefore, the patient was discharged with a plan to follow up on outpatient basis. Discharge was AMA. DISCHARGE MEDICATION The patient advised to continue with Keflex 200 mg b.i.d., Lexapro 10 mg daily, Seroquel 100 mg at bedtime. DISCHARGE DIAGNOSES Psychiatric: Major depressive disorder, recurrent, mofrcwbi-qy-kenxze, F33.2; amphetamine abuse disorder, moderate, F15.20; cannabis abuse, moderate, F12.20. Secondary diagnosis: Deferred. Medical diagnosis: None. Stressors: Psychosocial stressors. DISCHARGE INSTRUCTIONS The patient to follow up in outpatient clinic as per social research assistant. CONDITION ON DISCHARGE The patient was pleasant and cooperative. The patient denied any thoughts of harming self or others. Denied any psychotic symptom. Recent and remote memory, poor. Insight and judgment, poor. Dictated by... Unit #: [id number] #: [id number] Patient: MARGARITO MELENDEZ Lucien Langston/sander TD: 04/04/2017 22:40 JOB #: [id number] DISCHARGE SUMMARY Page 1 of 1 X Nick Quinones MD DISCHARGE SUMMARY
--- NOTE | ~2017-04-03 | HP ---
Unit #: [id number] #: [id number] Patient: MARGARITO MELENDEZ [id number] [facility] [address] [place] [address] [id number] I MR#: [id number] NAME: MARGARITO MELENDEZ ROOM: [facility] Age: 42 Sex: F Admission Date: 04/04/2017 : 1975 Attending Physician: Nick Quinones M.D. Admitting Physician: Nick Quinones M.D. Primary Care Physician: Israel Love M.D. HISTORY AND PHYSICAL NOTE Margarito is a 42 year old who was admitted and discharged within the first 24 hours. She was not seen for an H & P. Dictated by... Leela Alvarenga P.A.-C. for Lucien Phelps/katy TD: 04/05/2017 07:07 JOB #: [id number] HISTORY AND PHYSICAL Page 1 of 1 X Leela Alvarenga HISTORY AND PHYSICAL
== END 2017-04-04 11:12 | disposition home or self-care (01) | DRG 885 ==
LOC: P1E 04-04 01:18
DX: F33.2 Major depressive disorder, recurrent severe without psychotic features (principal); F15.20 Other stimulant dependence, uncomplicated; F12.20 Cannabis dependence, uncomplicated; K21.9 Gastro-esophageal reflux disease without esophagitis